=== PATIENT | male | born 2000 | race Two or more races ===

== ENCOUNTER → 2019-09-23 10:08 | Outpatient (CLI) | payer OTHER | END | disposition home or self-care (01) | LOC: LAB 10:08 | DX: J11.1 Influenza due to unidentified influenza virus with other respiratory manifestations (principal); J20.0 Acute bronchitis due to Mycoplasma pneumoniae ==

== ENCOUNTER 2023-09-11 13:39 | Emergency (ER) | payer OTHER ==
[~2023-09-11] VITALS: Ht 177.8 cm; Wt 86.2 kg
[2023-09-11 15:19] LABS: HEMATOCRIT 44.6 % (39.0-48.0); HEMOGLOBIN 15.6 g/dL (13-16.00); MEAN CELL VOLUME 86.7 fL (80.0-100.00); MEAN CORPUSCULAR HEMOGLOBIN 30.3 pg (27.00-32.0); MEAN CORPUSCULAR HGB CONC 34.9 g/dl (32.0-36.0); PLATELET COUNT 266 K/uL (150-450); RED BLOOD COUNT 5.15 M/uL (4.00-6.00); RED CELL DISTRIBUTION WIDTH 13.6 % (11.5-14.5)
[2023-09-11 15:39] LABS: CALCIUM 9.6 mg/dL (8.5-10.1); CREATININE SERUM 0.85 mg/dL (0.70-1.30); GFR 109.82; POTASSIUM 3.73 mEq/L (3.5-5.1)
[2023-09-11 16:56] LABS: URINE APPEARANCE Cloudy; URINE BILIRRUBIN Negative (NEGATIVE); URINE BLOOD Negative; URINE COLOR Yellow; URINE GLUCOSE Negative (NEGATIVE); URINE LEUKOCYTE Negative; URINE NITRATE Negative; URINE PROTEIN Negative (NEGATIVE)
[2023-09-11 17:00] LABS: URINE BACTERIA 13.8 uL (0.0-1933); URINE EPITHELIAL CELLS 8.9 uL (0.0-38.8); URINE RBC 2.8 uL (0.0-20.8); URINE WBC 11.1 uL (0.0-23.2)
[2023-09-11] MEDS ORDERED: INTESTINEX680 M1 PO (17:42)
[2023-09-11] MEDS ORDERED: PEPCID AC20 MG PO (17:42)
== END 2023-09-11 17:47 | disposition home or self-care (01) ==
LOC: ER 13:40
PROVIDERS: Nurse Practitioner Family
DX: A09 Infectious gastroenteritis and colitis, unspecified (principal)